=== PATIENT | male | born 1980 | race African-American/Black ===

== ENCOUNTER 2017-07-24 13:17 | Emergency (ER) | payer MEDICARE, MEDICAID ==
[~2017-07-24] VITALS: Ht 172.7 cm; Wt 97.5 kg
[2017-07-24 13:56] VITALS: BP 110/68
--- NOTE | 2017-07-24 14:15 | PHYS DOC ---
Past Medical History Past Medical History: No Pertinent History Past Surgical History: No Surgical History Alcohol Use: Occasionally Drug Use: None Adult General Chief Complaint Chief Complaint: DENTAL PROBLEM HPI HPI Patient is a 37 year old male presents to the emergency department stating that he's been having left upper and lower dental pain for the last 5 days. He states that he was seen actually machine and was placed on penicillin, patient had also been placed on oxycodone tablets for 3 days. Patient denies any fever, chills or any nausea or vomiting. He states that he is unable to get into a dentist as he does not have dental insurance. Patient states he's been taking ibuprofen and naproxen [id number]. He is also been taking the amoxicillin as prescribed. Patient states that the oxycodone, ibuprofen and naproxen did not help with his pain and discomfort. Review of Systems Review of Systems Constitutional: Denies fever or chills [] Eyes: Denies change in visual acuity, redness, or eye pain [] HENT: Denies nasal congestion or sore throat. C/o Dental pain Respiratory: Denies cough or shortness of breath [] Cardiovascular: No additional information not addressed in HPI [] GI: Denies abdominal pain, nausea, vomiting, bloody stools or diarrhea [] : Denies dysuria or hematuria [] Musculoskeletal: Denies back pain or joint pain [] Integument: Denies rash or skin lesions [] Neurologic: Denies headache, focal weakness or sensory changes [] Endocrine: Denies polyuria or polydipsia [] All other systems were reviewed and found to be within normal limits, except as documented in this note. Allergies Allergies Allergies Coded Allergies Type Severity Reaction Last Updated Verified No Known Drug Allergies 07/24/17 No Physical Exam Physical Exam Constitutional: Well developed, well nourished, no acute distress, non-toxic appearance. [] HENT: Normocephalic, atraumatic, bilateral external ears normal, oropharynx moist, no oral exudates, nose normal. Bilateral tympanic membranes appear to be normal. Patient with a decayed tooth in the left upper molar area. Right lower molar area appears normal. No significant abscess noted Eyes: PERRLA, EOMI, conjunctiva normal, no discharge. [] Neck: Normal range of motion, no tenderness, supple, no stridor. [] Cardiovascular:Heart rate regular rhythm, no murmur [] Lungs & Thorax: Bilateral breath sounds clear to auscultation [] Skin: Warm, dry, no erythema, no rash. [] Extremities: No tenderness, no cyanosis, no clubbing, ROM intact, no edema. [] Neurologic: Alert and oriented X 3, normal motor function, normal sensory function, no focal deficits noted. [] Psychologic: Affect normal, judgement normal, mood normal. [] Current Patient Data Vital Signs Vital Signs Date Time Temp Pulse Resp B/P (MAP) Pulse Ox O2 Delivery O2 Flow Rate FiO2 07/24/17 13:56 97.7 88 16 98 Room Air 97.7 EKG EKG [] Radiology/Procedures Radiology/Procedures [] Course & Med Decision Making Course & Med Decision Making Pertinent Labs and Imaging studies reviewed. (See chart for details) Patient has already put provided with penicillin medication in which he has 5 days left. Patient was instructed to use warm salt water mouth rinses 4-5 times a day. Recommended him to obtain dental wax to placed over the tooth area as he states that the pain medications are helping. Patient will be provided with a dentist list to follow-up with. Patient was provided signs and symptoms to return back to the emergency department. I've spoken with the patient and/or caregivers. I've explained the patient's condition, diagnosis and treatment plan based on information available to me at this time. I've answered the patient's and/or caregivers questions and addressed any concerns. The patient and/or caregivers have a good understanding the patient's diagnosis, condition and treatment plan as can be expected at this point. Vital signs have been stabilized. The patient's condition is stable for discharge from the emergency department. The patient will pursue further outpatient evaluation with her primary care provider or other designated consulting physician as outlined in the discharge instructions. Patient and/or caregivers are agreeable to this plan of care and follow-up instructions have been explained in detail. The patient and/or caregivers have received these instructions in written format and expressed understanding of these discharge instructions. The patient and her caregivers are aware that if any significant change in condition or worsening of symptoms should prompt him to immediately return to this of the closest emergency department. If an emergent department is not readily available I would encourage him to call 911. [] Dragon Disclaimer Dragon Disclaimer This electronic medical record was generated, in whole or in part, using a voice recognition dictation system. Departure Departure Impression: Primary Impression: Pain, dental Disposition: 01 HOME, SELF-CARE Condition: STABLE Referrals: RAO DURHAM (PCP) Patient Instructions: Dental Pain, [id number] Additional Instructions: Activity as tolerated. Continue using Aleve or ibuprofen for pain and discomfort. Warm moist packs to the left jaw area. Warm saltwater mouth rinses 4-5 times a day. You may obtain dental wax [id number] placed a dental wax over the tooth in the left upper area. Continue with the antibiotics and prescribed from [facility]. Follow-up with a dentist within the next week. Return back to the emergency department for signs and symptoms become worse. ROMÁN DE DIOS APRN Jul 24, 2017 14:14
== END 2017-07-24 14:20 | disposition home or self-care (01) ==
LOC: ER 13:17
DX: K02.9 Dental caries, unspecified (principal)
CPT/HCPCS: 99281